=== PATIENT | female | born 1970 | race Caucasian/White ===

== ENCOUNTER 2020-07-20 22:37 | Observation (INO) ==
[2020-07-20] MEDS ORDERED: Isovue-370 500 ML BOTTLE IVP ONE (23:45)
[2020-07-20] MEDS ORDERED: Aspirin 81 MG TAB.CHEW PO ONE (23:52)
[2020-07-20] MEDS ORDERED: Ondansetron 4 MG/2 ML VIAL IVP ONE (23:53)
[2020-07-21 00:29] LABS: Basophils % 0.4 %; Eosinophils # 0.2 K/mcL (0.0-0.6); Eosinophils % 1.8 %; Hemoglobin 13.7 g/dL (11.5-15.4); Immature Granulocytes % 0.2 % (0-4); Lymphocytes # 2.3 K/mcL (0.6-4.6); Lymphocytes % 26.6 %; Mean Corpuscular HGB Conc 33.4 g/dL (31.6-35.5); Mean Corpuscular Hemoglobin 32.2 pg (28.0-33.3); Mean Corpuscular Volume 96.5 fL (83.0-100.0); Monocytes # 0.6 K/mcL (0.0-1.3); Monocytes % 7.1 %; Neutrophils # 5.5 K/mcL (1.6-8.9); Platelet Count 171 K/mcL (140-400); Red Blood Count 4.25 M/mcL (3.82-4.97); Red Cell Distribution Width 11.9 % (11.5-14.5); Segmented Neutrophils % 63.9 %; White Blood Count 8.6 K/mcL (4.3-11.1)
[2020-07-21 00:51] LABS: Alanine Aminotransferase 17 Units/L (7-52); Albumin 3.9 g/dL (3.5-5.7); Alkaline Phosphatase 81 Units/L (34-104); Aspartate Amino Transferase 17 Units/L (13-39); BUN/Creatinine Ratio 19 (6-26); Bilirubin,Direct 0.1 mg/dL (0.0-0.2); Bilirubin,Indirect 0.2 mg/dL (0.0-1.0); Bilirubin,Total 0.3 mg/dL (0.3-1.0); Blood Urea Nitrogen 10 mg/dL (6-20); Carbon Dioxide 23 mEq/L (23-29); Chloride 106 mEq/L (98-107); Globulin 3.9 g/dL (2.4-3.5); Glucose 173 mg/dL (70-105); Lipase 17 Units/L (11-82); Osmolality,Calculated 283 (280-300); Sodium 135 mEq/L (136-145); Total Protein 7.8 g/dL (6.4-8.9); Troponin I < 0.03 ng/mL (< 0.04); eGFR For African Americans > 60 (> 60); eGFR For Non-African Americans > 60 (> 60)
[2020-07-21] MEDS ORDERED: *HR* FentaNYL (PF) 100 MCG/2 ML VIAL IVP ONE (02:13)
[2020-07-21] MEDS ORDERED: Acetaminophen 325 MG TABLET PO PRN (03:55)
[2020-07-21] MEDS ORDERED: Naloxone 0.4 MG/ML INJ IVP PRN (03:55)
[2020-07-21] MEDS ORDERED: Melatonin 3 MG TABLET PO PRN (03:55)
[2020-07-21] MEDS ORDERED: Ondansetron 4 MG/2 ML VIAL IVP PRN (03:55)
[2020-07-21] MEDS ORDERED: *HR* Dextrose 50 % in Water (Vial) 50 ML VIAL IVP PRN (07:13)
[2020-07-21] MEDS ORDERED: D5% in Water 1,000 ML IVC PRN (07:13)
[2020-07-21] MEDS ORDERED: Dextrose Gel 15 GM/37.5 ML TUBE PO PRN ×2 (07:13)
[2020-07-21] MEDS ORDERED: 0.9 % Sodium Chloride 1,000 ML IVC ONE (07:28)
[2020-07-21] MEDS ORDERED: Insulin LISPRO 300 UNITS/3 ML VIAL SUBQ SCH ×2 (11:30→21:00)
[2020-07-21] MEDS ORDERED: Regadenoson 0.4 MG/5 ML SYRINGE IVP ONE ×2 (12:27→12:33)
[2020-07-21] MEDS ORDERED: *HR* HYDROcodone/Acet 5/325 mg TABLET PO ONE (13:54)
[2020-07-21 14:22] VITALS: BP 115/93
[2020-07-21] MEDS ORDERED: *HR* Heparin 5,000 UNIT/ML VIAL SQ SCH (18:00)
[2020-07-22] MEDS ORDERED: Loratadine 10 MG TABLET PO SCH (09:00)
== END 2020-07-21 15:34 | disposition home or self-care (01) ==
LOC: CDU 22:37 → EMEROOARM 22:37 → SUATTDRO 07-21 03:18 → CDU 07-21 03:45
PROVIDERS: ADMIT Internal Medicine; ATTEND Internal Medicine